=== PATIENT | male | born 1980 | race American Indian/Alaskan Native ===

== ENCOUNTER 2020-09-18 16:18 | Inpatient (IN) | payer OTHER ==
[~2020-09-18] VITALS: Ht 182.9 cm; Wt 94.8 kg
[2020-09-18] MEDS ORDERED: DOXYCYCLINE HYCLATE 100 MG TABLET PO ONE (17:45)
[2020-09-18] MEDS ORDERED: CEPHALEXIN MONOHYDRATE 500 MG CAPSULE PO ONE (17:45)
[2020-09-18 18:11] LABS: COVID AG,FIA SOURCE NASAL SWAB
[2020-09-18 18:15] LABS: BASOPHILS % (AUTO) 0.7 % (0.0-2.0); EOSINOPHILS % (AUTO) 1.3 % (1.0-6.0); HEMATOCRIT 41.7 % (41-53); LYMPHOCYTES # (AUTO) 1.1 K/uL (1.0-4.8); LYMPHOCYTES % (AUTO) 16.7 % (22.0-44.0); MEAN CORPUSCULAR HEMOGLOBIN 27.6 pg (26.0-34.0); MEAN CORPUSCULAR HGB CONC 33.5 G/dL (31.0-37.0); MEAN CORPUSCULAR VOLUME 82 fL (80-100); MONOCYTES # (AUTO) 0.7 K/uL (0.1-1.0); NEUTROPHILS # (AUTO) 4.7 K/uL (1.8-7.7); NEUTROPHILS % (AUTO) 71.3 % (40.0-70.0); PLATELET COUNT (AUTO) 212 K/uL (150-450); RED BLOOD CELL COUNT(AUTO) 5.07 MIL/uL (4.50-5.90); RED CELL DISTRIBUTION WIDTH 15.9 % (11.5-14.5)
[2020-09-18 18:22] LABS: ANION GAP 10 mmol/L (8-16); CALCIUM, TOTAL 8.7 mg/dL (8.8-10.5); CARBON DIOXIDE 25 mmol/L (22-29); CHLORIDE 106 mmol/L (98-107); CREATININE 0.97 mg/dL (0.60-1.30); GLOMERULAR FILTR. RATE CALC > 60 mL/min (>60); GLUCOSE,RANDOM 101 mg/dL (70-110); POTASSIUM 3.6 mmol/L (3.5-5.1); SODIUM SERUM 141 mmol/L (136-145); UREA NITROGEN, BLOOD 11 mg/dL (7-18)
[2020-09-18 18:36] LABS: ALANINE AMINOTRANSFERASE 83 U/L (12-78); ALBUMIN 2.9 g/dL (3.4-5.0); ALKALINE PHOSPHATASE 101 U/L (46-116); ASPARTATE AMINOTRANSFERASE 86 U/L (15-37); BILIRUBIN,TOTAL 0.4 mg/dL (0.1-1.0); CHOLESTEROL 148 mg/dL (131-200); FREE T4 (FREE THYROXINE) 1.04 ng/dL (0.76-1.46); HDL CHOLESTEROL 49 mg/dL (40-60); LDL CHOL (CALC.) 76 mg/dL (0-130); THYROID STIMULATING HORMONE 0.68 uIU/mL (0.36-3.74); TOTAL PROTEIN, SERUM 8.1 g/dL (6.4-8.2); TRIGLYCERIDES 114 mg/dL (15-150)
[2020-09-18] MEDS ORDERED: CefTRIAXone 1 GM/DEXTROSE 50 ML IV ONE (20:00)
[2020-09-18] MEDS ORDERED: VANCOMYCIN HCL 1.5 GM in DEXTROSE 5%-WATER 250 ML IV ONE (20:00)
[2020-09-18 22:01] VITALS: BP 159/94
[2020-09-19] MEDS ORDERED: VANCOMYCIN HCL 500 MG in DEXTROSE 5%-WATER 100 ML IV ONE ×2
[2020-09-19 04:05] VITALS: BP 139/81
[2020-09-19 08:14] VITALS: BP 145/83
[2020-09-19] MEDS: VANCOMYCIN HCL 1 GM/D5% WATER 200 ML IV SCH ×2 (08:18→16:20)
[2020-09-19] MEDS ORDERED: ACETAMINOPHEN 325 MG TABLET PO PRN (14:15)
[2020-09-19] MEDS ORDERED: 1: MAGNESIUM SULFATE 2 GM, MVI, ADULT NO.1 WITH VIT K 10 ML, THIAMINE 100 MG, FOLIC ACID IV SCH ×5 (14:15)
[2020-09-19] MEDS ORDERED: MAGNESIUM SULFATE 2 GM, MVI, ADULT NO.1 WITH VIT K 10 ML, THIAMINE 100 MG, FOLIC ACID 1... IV SCH ×5 (15:00)
[2020-09-19] MEDS: CefTRIAXone 1 GM/DEXTROSE 50 ML IV SCH (15:14)
[2020-09-19 20:03] VITALS: BP 142/90
[2020-09-19] MEDS: SERTRALINE HCL 50 MG TABLET PO SCH (21:26)
[2020-09-19] MEDS: TraZODone HCL 50 MG TABLET PO SCH (21:26)
[2020-09-20] MEDS ORDERED: SODIUM CHLORIDE 0.9% 250 ML IV ONE (00:34)
[2020-09-20] MEDS: VANCOMYCIN HCL 1 GM/D5% WATER 200 ML IV SCH ×4 (00:39→23:45)
[2020-09-20 04:55] VITALS: BP 138/81
[2020-09-20 06:33] LABS: BASOPHILS % (AUTO) 0.8 % (0.0-2.0); EOSINOPHILS % (AUTO) 4.2 % (1.0-6.0); HEMATOCRIT 40.5 % (41-53); HEMOGLOBIN 13.5 g/dL (13.5-17.5); LYMPHOCYTES # (AUTO) 1.2 K/uL (1.0-4.8); LYMPHOCYTES % (AUTO) 22.9 % (22.0-44.0); MEAN CORPUSCULAR HEMOGLOBIN 27.7 pg (26.0-34.0); MEAN CORPUSCULAR HGB CONC 33.5 G/dL (31.0-37.0); MEAN CORPUSCULAR VOLUME 83 fL (80-100); MONOCYTES # (AUTO) 0.5 K/uL (0.1-1.0); MONOCYTES % (AUTO) 9.6 % (2.0-9.0); NEUTROPHILS # (AUTO) 3.3 K/uL (1.8-7.7); NEUTROPHILS % (AUTO) 62.5 % (40.0-70.0); PLATELET COUNT (AUTO) 209 K/uL (150-450); RED CELL DISTRIBUTION WIDTH 15.5 % (11.5-14.5)
[2020-09-20 07:21] LABS: ANION GAP 8 mmol/L (8-16); CALCIUM, TOTAL 7.8 mg/dL (8.8-10.5); CARBON DIOXIDE 24 mmol/L (22-29); CHLORIDE 107 mmol/L (98-107); CREATININE 0.88 mg/dL (0.60-1.30); GLOMERULAR FILTR. RATE CALC > 60 mL/min (>60); GLUCOSE,RANDOM 98 mg/dL (70-110); POTASSIUM 4.1 mmol/L (3.5-5.1); SODIUM SERUM 139 mmol/L (136-145); UREA NITROGEN, BLOOD 9 mg/dL (7-18); VANCOMYCIN,RANDOM 14.5 mcg/mL (25.0-50.0)
[2020-09-20 08:27] VITALS: BP 138/71
[2020-09-20] MEDS: CefTRIAXone 1 GM/DEXTROSE 50 ML IV SCH (14:19)
[2020-09-20 20:00] VITALS: BP 141/85
[2020-09-20] MEDS: TraZODone HCL 50 MG TABLET PO SCH (21:16)
[2020-09-20] MEDS: SERTRALINE HCL 50 MG TABLET PO SCH (21:16)
[2020-09-21 04:20] VITALS: BP 138/87
[2020-09-21 06:14] LABS: ANION GAP 7 mmol/L (8-16); CALCIUM, TOTAL 8.2 mg/dL (8.8-10.5); CARBON DIOXIDE 28 mmol/L (22-29); CHLORIDE 106 mmol/L (98-107); CREATININE 0.83 mg/dL (0.60-1.30); GLOMERULAR FILTR. RATE CALC > 60 mL/min (>60); GLUCOSE,RANDOM 102 mg/dL (70-110); POTASSIUM 4.3 mmol/L (3.5-5.1); SODIUM SERUM 141 mmol/L (136-145); UREA NITROGEN, BLOOD 10 mg/dL (7-18)
[2020-09-21 08:11] VITALS: BP 146/75
[2020-09-21] MEDS: FOLIC ACID 1 MG TABLET PO SCH (08:26)
[2020-09-21] MEDS: VANCOMYCIN HCL 1 GM/D5% WATER 200 ML IV SCH ×3 (08:27→23:53)
[2020-09-21] MEDS: THIAMINE 100 MG TABLET PO SCH (08:27)
[2020-09-21] MEDS: MULTIVITAMINS, THERAPEUTIC TABLET PO SCH (08:27)
[2020-09-21] MEDS ORDERED: SODIUM CHLORIDE 0.9% 500 ML IV ONE (13:50)
[2020-09-21] MEDS: CefTRIAXone 1 GM/DEXTROSE 50 ML IV SCH (14:52)
[2020-09-21] MEDS: TraZODone HCL 50 MG TABLET PO SCH (19:58)
[2020-09-21] MEDS: SERTRALINE HCL 50 MG TABLET PO SCH (19:58)
[2020-09-21 20:33] VITALS: BP 142/98
[2020-09-22 05:05] VITALS: BP 122/58
[2020-09-22 06:41] LABS: ANION GAP 7 mmol/L (8-16); CALCIUM, TOTAL 8.4 mg/dL (8.8-10.5); CARBON DIOXIDE 28 mmol/L (22-29); CHLORIDE 104 mmol/L (98-107); CREATININE 0.92 mg/dL (0.60-1.30); GLOMERULAR FILTR. RATE CALC > 60 mL/min (>60); GLUCOSE,RANDOM 103 mg/dL (70-110); POTASSIUM 3.9 mmol/L (3.5-5.1); SODIUM SERUM 139 mmol/L (136-145); UREA NITROGEN, BLOOD 11 mg/dL (7-18)
[2020-09-22] MEDS: FOLIC ACID 1 MG TABLET PO SCH (08:07)
[2020-09-22] MEDS: MULTIVITAMINS, THERAPEUTIC TABLET PO SCH (08:07)
[2020-09-22] MEDS: VANCOMYCIN HCL 1 GM/D5% WATER 200 ML IV SCH ×3 (08:07→23:24)
[2020-09-22] MEDS: THIAMINE 100 MG TABLET PO SCH (08:07)
[2020-09-22 09:06] VITALS: BP 137/82
[2020-09-22] MEDS: CefTRIAXone 1 GM/DEXTROSE 50 ML IV SCH (15:02)
[2020-09-22 19:42] VITALS: BP 147/87
[2020-09-22] MEDS: TraZODone HCL 50 MG TABLET PO SCH (19:47)
[2020-09-22] MEDS: SERTRALINE HCL 50 MG TABLET PO SCH (19:47)
[2020-09-23 04:35] VITALS: BP 141/78
[2020-09-23 06:37] LABS: ANION GAP 5 mmol/L (8-16); CALCIUM, TOTAL 8.4 mg/dL (8.8-10.5); CARBON DIOXIDE 28 mmol/L (22-29); CHLORIDE 104 mmol/L (98-107); CREATININE 0.94 mg/dL (0.60-1.30); GLOMERULAR FILTR. RATE CALC > 60 mL/min (>60); GLUCOSE,RANDOM 103 mg/dL (70-110); POTASSIUM 3.9 mmol/L (3.5-5.1); SODIUM SERUM 137 mmol/L (136-145); UREA NITROGEN, BLOOD 12 mg/dL (7-18); VANCOMYCIN,RANDOM 28.6 mcg/mL (25.0-50.0)
[2020-09-23 07:41] VITALS: BP 115/60
[2020-09-23] MEDS ORDERED: VANCOMYCIN HCL 750 MG in DEXTROSE 5%-WATER 250 ML IV SCH (08:00)
[2020-09-23] MEDS: FOLIC ACID 1 MG TABLET PO SCH (08:07)
[2020-09-23] MEDS: MULTIVITAMINS, THERAPEUTIC TABLET PO SCH (08:07)
[2020-09-23] MEDS: THIAMINE 100 MG TABLET PO SCH (08:07)
[2020-09-23] MEDS ORDERED: SULF1TAB41 PO (11:32)
[2020-09-23] MEDS ORDERED: TRAZ-252 PO (11:32)
[2020-09-23] MEDS ORDERED: CEPH500C3 PO (11:32)
[2020-09-23] MEDS ORDERED: SERT-158 PO (11:33)
[2020-09-23] MEDS ORDERED: FOLI0.4T6 PO (11:34)
[2020-09-23] MEDS ORDERED: THIA100T80 PO (11:35)
[2020-09-23] MEDS ORDERED: FOLI-130 PO (11:35)
== END 2020-09-23 12:25 | DRG 603 ==
LOC: EMS 16:18 → 6N 18:28 → 6S 18:28 → UNDOADMIN 18:28
PROVIDERS: ADMIT Internal Medicine; ATTEND Internal Medicine
DX: L03.114 Cellulitis of left upper limb (principal); R45.851 Suicidal ideations; F10.10 Alcohol abuse, uncomplicated; Z20.822 Contact with and (suspected) exposure to COVID-19; F15.10 Other stimulant abuse, uncomplicated; R73.03 Prediabetes; F32.9 Major depressive disorder, single episode, unspecified; F17.200 Nicotine dependence, unspecified, uncomplicated
CPT/HCPCS: 76881; 83036; 84145; 84439; 84443; 87070; 87205; 87426; 99285; G0480; J0696; J3370; J3411; J3475; J3490; J7030; J7040; J7050; J7060